=== PATIENT | female | born 1995 | race Caucasian/White ===

== ENCOUNTER 2022-06-22 08:26 | Emergency (ER) | payer OTHER, SELFPAY ==
[2022-06-22 08:34] VITALS: BP 124/85; PULSE 88; RESP 20; TEMP 36.7; O2SAT 100
--- NOTE | 2022-06-22 08:44 | ED.URI ---
HPI - URI/Sore Throat General Chief Complaint: Upper Respiratory Infection Stated Complaint: cold flu Time Seen by Provider: 06/22/22 08:50 Source: patient, RN notes reviewed and old records reviewed Mode of arrival: ambulatory Limitations: no limitations History of Present Illness HPI Narrative: 26-year-old female who presents to [facility] with complaints of right half weeks of sore throat complaints specially in the mornings she has green postnasal drainage it has some sinus pressure and also headache. Patient states her symptoms did get a little bit better but then for the last 3-4 days congestion has increased and facial pressure. Patient states she has been taking Sudafed for her symptoms. Patient states her last menses was the 2nd week of May and has not had period yet this month did have faint positive test then a negative, had blood at her doctor which was negative for but still has not had menses though she should be due. MD elicited complaint: sore throat, rhinorrhea, nasal congestion and sinus pain Onset (ago): day(s) (10) Treatments prior to arrival: other (sudafed) Related Data Home Medications Medication Instructions Recorded Confirmed escitalopram oxalate 20 mg tablet 20 mg PO DAILY 06/22/22 06/22/22 (Lexapro) Allergies Allergy/AdvReac Type Severity Reaction Status Date / Time nystatin Allergy Unknown unknowned Verified 06/22/22 08:37 Review of Systems Review of Systems: CONSTITUTIONAL: Denies malaise, chills, sweats, or fever. EYES: Denies visual changes, redness, or discharge. ENT: Reports rhinorrhea, congestion, sinus pain,no otalgia positive for sore throat. CARDIOVASCULAR: Denies chest pain, palpitations, or edema. RESPIRATORY: Reports cough.? Denies dyspnea. GASTROINTESTINAL: Denies abdominal pain, nausea, vomiting, diarrhea SKIN: Denies rash or itching. MUSCULOSKELETAL: Denies myalgia. NEUROLOGIC: Positive for headache. All systems reviewed & are unremarkable except as noted in HPI and below PMFSH Past Medical History Medical History (Updated 06/22/22 @ 09:12 by Indira Kilgore NP) Depression Miscarriage Surgical History Surgical History (Updated 06/22/22 @ 09:11 by Indira Kilgore NP) Previous section x2 Family History Family History (Updated 08/07/16 @ 08:25 by DOCTOR UNKNOWN) Grandparent Depression Family history of migraine headaches Social History Social History (Updated 06/22/22 @ 09:12 by Indira Kilgore NP) Smoking status: Never smoker Alcohol intake: never Substance use type: does not use Gender identity (if verbalized by the patient): Female Comments At time of signature, agree with nursing past medical, surgical, social and family history. There is no relevant family history pertinent to the presenting complaint Exam Narrative: GENERAL: Well-appearing, well-nourished, and in no acute distress. HEAD: Normocephalic EYES: PERRLA, conjunctivae clear ENT: Nares clear, turbinates edematous and erythematous, clear to yellow discharge. Mucous membranes moist. TM pearly carballo with dull light reflex bilaterally; no tragal tenderness. Oropharynx erythematous without lesions. Tonsils not enlarged and without exudate, no drooling, no hoarseness, no trismus, uvula midline.post nasal drainage NECK: Supple. No lymphadenopathy CHEST: Clear to auscultation, breath sounds equal. No wheezing, rhonchi, rales, or stridor. No respiratory distress, speaks in full sentences.dry cough SAO2 100% on room air HEART: Regular rate and rhythm. No murmur heard. SKIN: Warm, dry, no rash. NEURO: Alert and oriented x3. PSYCH: Normal mood and affect Course Course Emergency Course: Patient is aware of diagnosis, understands and agrees to treatment plan.? Anticipatory guidance given.? Patient agrees to follow-up as directed and is aware of reasons to seek care at the emergency department. Portions of
== END 2022-06-22 09:21 | disposition home or self-care (01) ==
PROVIDERS: Emergency Provider Registered Nurse
DX: J32.9 Chronic sinusitis, unspecified (principal); F32.A Depression, unspecified
CPT/HCPCS: 81025; 99213; G0463